=== PATIENT | female | born 1980 | race African-American/Black ===

== ENCOUNTER 2018-03-01 03:53 | Emergency (ER) | payer SELFPAY ==
[2018-03-01] MEDS ORDERED: TETRACAINE HCL 0.5% OPH SOLN 4 ML ONE (04:28)
[2018-03-01] MEDS ORDERED: TETRACAINE HCL 0.5% OPH SOLN 4 ML OS ONE (04:33)
[2018-03-01] MEDS ORDERED: ONDANSETRON 4 MG TAB.RAPDIS PO ONE (04:34)
--- NOTE | 2018-03-01 04:34 | ER Document Report ---
ED Foreign Body - General Chief Complaint: Foreign Body in Ear Stated Complaint: FOREIGN BODY IN EAR Time Seen by Provider: 03/01/18 04:25 Notes: Patient is a 37-year-old female that comes to the emergency department for chief complaint of bug in the left ear, she states she was sleeping and felt a crawling, she states it is very uncomfortable. She denies bleeding, vomiting, she states that she put in peroxide and tried to flush it with the shower head without any success. She still reports feeling it move around. TRAVEL OUTSIDE OF THE [place] IN LAST 30 DAYS: No - Related Data Allergies/Adverse Reactions: No Known Allergies Allergy (Unverified 09/12/14 17:26) Past Medical History - General Information source: Patient - Social History Smoking Status: Never Smoker Frequency of alcohol use: None Drug Abuse: None Lives with: Family Family History: Reviewed & Not Pertinent Patient has suicidal ideation: No Patient has homicidal ideation: No Renal/ Medical History: Denies: Hx Peritoneal Dialysis Past Surgical History: Reports: Hx Section - x4 - Immunizations Hx Diphtheria, Pertussis, Tetanus Vaccination: Yes Review of Systems - Review of Systems Constitutional: No symptoms reported EENT: See HPI Cardiovascular: No symptoms reported Respiratory: No symptoms reported Gastrointestinal: No symptoms reported Genitourinary: No symptoms reported Female Genitourinary: No symptoms reported Musculoskeletal: No symptoms reported Skin: No symptoms reported Hematologic/Lymphatic: No symptoms reported Neurological/Psychological: No symptoms reported Physical Exam - Vital signs Vitals: Temp Pulse BP Pulse Ox 98.6 F 98 145/83 H 100 03/01/18 03:59 03/01/18 03:59 03/01/18 03:59 03/01/18 03:59 - Notes Notes: GENERAL: Anxious and tearful HEAD: Normocephalic, atraumatic. EYES: Pupils equal, round, and reactive to light. Extraocular movements intact. ENT: Oral mucosa moist, tongue midline. Oropharynx unremarkable. Airway patent. Nares patent, no nasal septal hematoma. A leg and the back of an insect with the wings appears to be visualized deep inside the left ear canal. No bleeding. Mild erythema of the ear canal. Unremarkable ear exam otherwise. NECK: Full range of motion. Supple. Trachea midline. LUNGS: Clear to auscultation bilaterally, no wheezes, rales, or rhonchi. No respiratory distress. HEART: Regular rate and rhythm. No murmur ABDOMEN: Soft, non-tender. Non-distended. Bowel sounds present in all 4 quadrants. GENITOURINARY: Deferred EXTREMITIES: Moves all 4 extremities spontaneously. No edema, normal radial and dorsalis pedis pulses bilaterally. No cyanosis. BACK: no cervical, thoracic, lumbar midline tenderness. No saddle anesthesia, normal distal neurovascular exam. NEUROLOGICAL: Alert and oriented x3. Normal speech. [cranial nerves II through XII grossly intact]. PSYCH: Normal affect, normal mood. SKIN: Warm, dry, normal turgor. No rashes or lesions noted. Course - Re-evaluation Re-evalutation: Isopropyl alcohol was placed in the ear followed by tetracaine. Patient initially cried out and then states the discomfort completely stopped. Afterwards she did not have any additional symptoms. I was able to visualize the insect after flushing and this was noted to be . I was able to grasp the end of the insect and pull with forceps but this broke. Attempted to flush it closer. After this patient unwilling to have the insect removed any further , requested I stop. I gave her Phenergan, offered to try again to irrigate and then remove the insect remaining, patient declined. Because of irritation in the ear canal she was placed on Ciprodex, discussed recommendations for flushing it out at home, discussed ENT follow-up, discussed return precautions. Patient states understanding and agreement. - Vital Signs Vital signs: Temp Pulse Resp BP Pulse Ox 98.6 F 98 145/83 H 100 03/01/18 03:59 03/01/18 03:59 03/01/18 03:59 03/01/18 03:59 Discharge - Discharge Clinical Impression: Foreign body of ear, left Qualifiers: Encounter type: initial encounter Qualified Code(s): T16.2XXA - Foreign body in left ear, initial encounter Condition: Stable Disposition: HOME, SELF-CARE Additional Instructions: The insect was killed and partially removed from your ear. Use the ear drops as prescribed (4 drops, twice a day, for 7 days). You can also flush your ear with warm water in the bath. The insect will eventually break down completely and completely be removed from the ear. You can optionally follow up with the ENT referral listed to have this removed. Return for any concerning symptoms including swelling, bleeding, severe pain, or any other concerning symptoms. [facility] Address: [address] [place] [address] Nelli Burk, [place] [address]
[2018-03-01] MEDS ORDERED: PROMETHAZINE HCL 25 MG TABLET PO ONE (04:41)
[2018-03-01] MEDS ORDERED: CIPROFLOXACIN HCL/DEXAMETH OTIC DROP 7.5 ML AS ONE (05:28)
[2018-03-01 06:03] VITALS: BP 147/96
== END 2018-03-01 06:03 | disposition home or self-care (01) ==
LOC: ER 03:53
DX: T16.2XXA Foreign body in left ear, initial encounter (principal); X58.XXXA Exposure to other specified factors, initial encounter
CPT/HCPCS: 99282; J3490 ×2

== ENCOUNTER 2018-10-26 13:44 | Emergency (ER) | payer OTHER ==
[2018-10-26] MEDS ORDERED: HYDROCODONE/ACETAMINOPHEN 5-325 MG TABLET PO ONE (16:19)
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
[2018-10-26 18:12] VITALS: BP 133/74
== END 2018-10-26 18:20 | disposition home or self-care (01) ==
LOC: ER 13:44
DX: S43.402A Unspecified sprain of left shoulder joint, initial encounter (principal); S83.91XA Sprain of unspecified site of right knee, initial encounter; S73.101A Unspecified sprain of right hip, initial encounter; S16.1XXA Strain of muscle, fascia and tendon at neck level, initial encounter; M54.2 Cervicalgia; M54.6 Pain in thoracic spine; M25.512 Pain in left shoulder; V87.7XXA Person injured in collision between other specified motor vehicles (traffic), initial encounter; I10 Essential (primary) hypertension
CPT/HCPCS: 72125; 99284